=== PATIENT | male | born 1990 | race African-American/Black ===

== ENCOUNTER 2022-11-29 01:54 | Emergency (ER) | payer SELFPAY | END 2022-11-29 03:29 | disposition left against medical advice (07) | LOC: ERS 01:54 | DX: Z53.21 Procedure and treatment not carried out due to patient leaving prior to being seen by health care provider (principal) ==

== ENCOUNTER 2024-03-24 21:43 | Emergency (ER) | payer BC | END 2024-03-24 22:05 | disposition home or self-care (01) | LOC: ERS 21:43 | DX: J30.1 Allergic rhinitis due to pollen (principal); L02.11 Cutaneous abscess of neck | CPT/HCPCS: 99282 ==

== ENCOUNTER 2024-06-18 06:08 | Emergency (ER) | payer BC | END 2024-06-18 07:52 | disposition home or self-care (01) | LOC: ERS 06:08 | DX: R51.9 Headache, unspecified (principal); Z55.6 Problems related to health literacy | CPT/HCPCS: 99283 ==